=== PATIENT | female | born 1950 | race Two or more races ===

== ENCOUNTER 2022-10-05 13:14 | Inpatient (IN) | payer OTHER ==
[~2022-10-05] VITALS: Ht 149.9 cm; Wt 86.2 kg
[2022-10-05] MEDS ORDERED: NAMENDA5 MG PO (13:25)
[2022-10-05] MEDS ORDERED: AVALIDE 300-121 EACH PO ×2 (13:25→13:29)
[2022-10-05] MEDS ORDERED: WELLBUTRIN SR200 MG PO (13:25)
[2022-10-05] MEDS ORDERED: CYMBALTA20 MG PO (13:26)
[2022-10-05] MEDS ORDERED: ZOCOR20 MG PO (13:26)
[2022-10-05] MEDS ORDERED: MAGNESIUM200 MG (13:27)
[2022-10-05] MEDS ORDERED: PEPCID AC10 MG (13:27)
[2022-10-05] MEDS ORDERED: BIOTIN1000 MCG (13:28)
[2022-10-05] MEDS ORDERED: [UNRECOGNIZED DRUG - OTHER] (13:28)
[2022-10-05] MEDS ORDERED: ZYRTEC10 M3 PO (13:29)
[2022-10-05] MEDS ORDERED: SINGULAIR10 MG PO (13:30)
[2022-10-05] MEDS ORDERED: RAZADYNE ER16 M1 PO (13:30)
[2022-10-07] MEDS ORDERED: IRBESARTAN-HCT1 EAC1 (13:20)
[2022-10-07] MEDS ORDERED: SIMVASTATIN40 MG (13:20)
[2022-10-07] MEDS ORDERED: DULOXETINE HCL60 MG (13:20)
[2022-10-07] MEDS ORDERED: TOLTERODINE TART2 M1 (13:20)
[2022-10-07] MEDS ORDERED: PREDNISONE10 M2 (13:21)
[2022-10-07] MEDS ORDERED: BUPROPION XL300 MG (13:21)
[2022-10-07] MEDS ORDERED: GALANTAMINE HBR8 MG (13:21)
[2022-10-07] MEDS ORDERED: MEMANTINE HCL10 MG (13:21)
== END 2022-10-12 13:35 | disposition home or self-care (01) | DRG 415 ==
LOC: ER 13:14 → SURH 10-06 00:46
PROVIDERS: Surgery; ADMIT Internal Medicine; ATTEND Internal Medicine
PROC: BW21ZZZ Computerized Tomography (CT Scan) of Abdomen and Pelvis (ICD-10-PCS; 2022-10-05)
PROC: BW40ZZZ Ultrasonography of Abdomen (ICD-10-PCS; 2022-10-05)
PROC: 0FJ44ZZ Inspection of Gallbladder, Percutaneous Endoscopic Approach (ICD-10-PCS; 2022-10-08)
PROC: 0FT40ZZ Resection of Gallbladder, Open Approach (ICD-10-PCS; principal; 2022-10-08 09:00)
DX: K80.00 Calculus of gallbladder with acute cholecystitis without obstruction (principal); N17.8 Other acute kidney failure; N39.0 Urinary tract infection, site not specified; D72.828 Other elevated white blood cell count; B96.29 Other Escherichia coli [E. coli] as the cause of diseases classified elsewhere; I95.9 Hypotension, unspecified